=== PATIENT | female | born 1970 | race Caucasian/White ===

== ENCOUNTER 2024-05-21 16:42 | Emergency (ER) | payer OTHER ==
[~2024-05-21] VITALS: Ht 165.1 cm; Wt 79.0 kg
[2024-05-21] MEDS ORDERED: LORA0.5T20 PO (17:39)
[2024-05-21] MEDS ORDERED: CARV6.2534 PO (17:39)
[2024-05-21] MEDS ORDERED: LISI20TA24 PO (17:39)
[2024-05-21] MEDS ORDERED: ATOR40TA71 PO (17:39)
[2024-05-21] MEDS ORDERED: OLAN10TA74 PO (17:39)
[2024-05-21] MEDS ORDERED: MEDR150D7 IM (17:39)
[2024-05-21] MEDS ORDERED: PANT40TA54 PO (17:39)
[2024-05-21] MEDS ORDERED: OXCA600T18 PO (17:39)
[2024-05-21 17:52] VITALS: TEMP 97.9
[2024-05-21 18:23] LABS: BASOPHILS % (AUTO) 0.5 % (0.0-2.0); EOSINOPHILS % (AUTO) 1.6 % (1.0-6.0); HEMATOCRIT 37.1 % (36-46); HEMOGLOBIN 12.3 g/dL (12.0-16.0); LYMPHOCYTES # (AUTO) 3.1 K/uL (1.0-4.8); MEAN CORPUSCULAR HEMOGLOBIN 32.1 pg (26.0-34.0); MEAN CORPUSCULAR HGB CONC 33.2 G/dL (31.0-37.0); MEAN CORPUSCULAR VOLUME 97 fL (80-100); MONOCYTES # (AUTO) 0.5 K/uL (0.1-1.0); MONOCYTES % (AUTO) 8.2 % (2.0-9.0); NEUTROPHILS # (AUTO) 2.6 K/uL (1.8-7.7); NEUTROPHILS % (AUTO) 40.7 % (40.0-70.0); PLATELET COUNT (AUTO) 339 K/uL (150-450); RED BLOOD CELL COUNT(AUTO) 3.83 MIL/uL (4.00-5.20); RED CELL DISTRIBUTION WIDTH 14.5 % (11.5-14.5); WHITE BLOOD COUNT (AUTO) 6.3 K/uL (4.5-11.0)
[2024-05-21 18:32] LABS: ANION GAP 9 mmol/L (8-16); CALCIUM, TOTAL 8.8 mg/dL (8.8-10.5); CARBON DIOXIDE 29 mmol/L (22-29); CHLORIDE 101 mmol/L (98-107); CREATININE 0.62 mg/dL (0.60-1.30); GLOMERULAR FILTR. RATE CALC > 60 mL/min (>60); GLUCOSE,RANDOM 98 mg/dL (70-110); POTASSIUM 4.4 mmol/L (3.5-5.1); SODIUM SERUM 139 mmol/L (136-145); UREA NITROGEN, BLOOD 15 mg/dL (7-18)
[2024-05-21 18:37] LABS: ALCOHOL, BLOOD (SERUM) < 3 mg/dL (0-10)
[2024-05-21] MEDS: LORazepam 1 MG TABLET PO ONE (18:59)
[2024-05-21] MEDS: IBUPROFEN 400 MG TABLET PO ONE (18:59)
[2024-05-21] MEDS: ACETAMINOPHEN 325 MG TABLET PO ONE (19:00)
[2024-05-21 19:37] LABS: COVID AG,FIA SOURCE NASAL SWAB
[2024-05-21 20:02] LABS: SARS-COV2 (COVID) ANTIGEN,FIA Negative (Negative)
[2024-05-21 20:15] VITALS: BP 104/64; PULSE 77; RESP 19; O2SAT 92
== END 2024-05-22 00:26 | disposition home or self-care (01) ==
LOC: EMS 16:42
DX: F20.9 Schizophrenia, unspecified (principal); F31.9 Bipolar disorder, unspecified; F41.9 Anxiety disorder, unspecified; E78.5 Hyperlipidemia, unspecified; G40.909 Epilepsy, unspecified, not intractable, without status epilepticus; I11.0 Hypertensive heart disease with heart failure; I50.9 Heart failure, unspecified; K21.9 Gastro-esophageal reflux disease without esophagitis; Z79.899 Other long term (current) drug therapy; Z86.73 Personal history of transient ischemic attack (TIA), and cerebral infarction without residual deficits; Z20.822 Contact with and (suspected) exposure to COVID-19
CPT/HCPCS: 99284; 87426; 80048; 85025; 36415; G0480